=== PATIENT | female | born 1965 | race Caucasian/White ===

== ENCOUNTER → 2022-02-28 11:58 | Outpatient (CLI) | payer OTHER, SELFPAY | PROVIDERS: PCP Nurse Practitioner Family; Visit Provider Nurse Practitioner Family | DX: J02.0 Streptococcal pharyngitis (principal) | CPT/HCPCS: 87807; C9803; U0003; U0005 ==

== ENCOUNTER → 2022-06-11 11:47 | Outpatient (CLI) | payer OTHER, SELFPAY ==
--- NOTE | 2022-06-11 11:53 | XR_ITS ---
FINAL REPORT CLINICAL HISTORY: foot pain FINDINGS: AP, oblique and lateral views of the left foot were obtained. There is no prior exam for comparison. There is no acute fracture or dislocation. The joint spaces are preserved. Soft tissues are normal. IMPRESSION: No acute osseous abnormality of the left foot. Reviewed, Interpreted and Dictated by Monica Luz MD Transcribed by Piedad Shannon Authenticated and [facility]
== END ==
PROVIDERS: PCP Nurse Practitioner Family; Visit Provider Podiatrist
DX: M79.672 Pain in left foot (principal)
CPT/HCPCS: 73630

== ENCOUNTER 2023-04-14 16:13 | Emergency (ER) | payer OTHER, SELFPAY ==
--- NOTE | 2023-04-14 16:20 | XR_ITS ---
PROCEDURE INFORMATION: Exam: XR Left Ankle Exam date and time: 04/14/2023 4:36 PM Age: 57 years old Clinical indication: Injury or trauma; Other: Rolled ankle TECHNIQUE: Imaging protocol: Radiologic exam of the left ankle. Views: 3 or more views. COMPARISON: CR XR FOOT WT BEARING LT 3V 06/11/2022 12:18 PM FINDINGS: Bones/joints: There is an acute avulsion fracture involving the distal tip of the fibula with minor displacement of the small fracture fragment by approximately 1.3 mm. No additional acute fractures are seen. Joint spaces appear preserved. Calcaneal spurs are demonstrated at the origin of the plantar fascia and the insertion of the Achilles tendon. Soft tissues: There is minor associated perifractural edema. No subcutaneous emphysema or radiopaque foreign bodies. IMPRESSION: Acute avulsion fracture involving the distal tip of the fibula as described.
[2023-04-14 16:30] VITALS: BP 140/77; PULSE 85; RESP 18; TEMP 36.7; O2SAT 98; BMI 29.1
--- NOTE | 2023-04-14 16:33 | EXP.UTC ---
Discharge Plan Disposition Patient Disposition: Home, Self-Care Condition: Good Prescriptions Prescriptions: New ibuprofen [ibuprofen] 600 mg tablet 600 mg PO Q6HP PRN (Reason: Mild Pain) Qty: 30 0RF No Action atorvastatin 20 mg tablet 20 mg PO HS 30 Days Qty: 30 0RF Rx Instructions: Pt will need an appt/labs for additional refills Referrals Follow up/Referrals: Cary Schneider APRN [Primary Care Provider] - See instructions Susi Yeung DPM [Staff Physician] - See instructions Activity Restrictions/Add. Instructions Additional Instructions/Restrictions: Rest the extremity, apply ice for 15 minutes as tolerated three or four times per day, Elevate the extremity as tolerated while you are resting. Take ibuprofen for pain. I sent in a prescription to your pharmacy. Follow up with Dr. Yeung (podiatry). I put in a referral but you need to call her office and schedule an appointment. Her office phone number will be on this paperwork. Follow up with your regular doctor. GO TO THE ER FOR ANY WORSENING SYMPTOMS Clinical Impressions Clinical Impression: Closed avulsion fracture of distal end of left fibula Instructions Patient Instructions: DI for Avulsion Fracture Discharge ED Provider: Christiano Hobbs [facility] General Stated complaint: AO04/04 LT ankle injury Time Seen by Provider: 04/14/23 16:33 History of Present Illness Provider Complaint: She states that she slipped on a walnut and twisted her left foot. 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 She has had pain and swelling of her left ankle. She denies any other injury. She states that it hurts too bad to bear weight on her foot and ankle. Related Data Previous Rx's Medication Instructions Recorded atorvastatin 20 mg tablet 20 mg PO HS 30 days #30 tabs 03/22/22 ibuprofen 600 mg tablet 600 mg PO Q6HP PRN Mild Pain #30 04/14/23 tabs Allergies Allergy/AdvReac Type Severity Reaction Status Date / Time No Known Allergies Allergy Verified 04/14/23 16:39 [facility] Disclaimer: The information contained in this section may have been updated after the patient was seen, as this information can be updated by other users. Medical History Hyperlipidemia Surgical History History of delivery History of hip surgery Social History Smoking Status: Never smoker alcohol intake: never current occupational status: employed Travel in the last 8 weeks: None marital status: ROS Obtained: Yes All systems reviewed & no additional complaints except as documented Constitutional Constitutional: Denies chills and Denies fever(s) Eyes Eyes: Denies eye discharge ENT Ears, Nose, Mouth, and Throat: Denies dizziness, Denies otalgia and Denies sore throat Cardiovascular Cardiovascular: Denies chest pain Respiratory Respiratory: Denies shortness of breath, Denies chest congestion, Denies cough, Denies stridor and Denies wheezing Gastrointestinal Gastrointestingal: Denies nausea or vomiting Musculoskeletal Musculoskeletal: Reports as per HPI Integumentary/Breasts Skin/Breast: Denies rash Neurologic Neurologic: Denies dizziness and Denies paresthesias Allergic/Immunologic Allergic/Immunologic: Denies wheezing Physical Exam General General appearance: alert and in no apparent distress Head Head exam: atraumatic, normocephalic and normal inspection Eye Eye exam: Present normal appearance, PERRL and EOMI ENT ENT exam: Present normal exam, normal oropharynx, mucous membranes moist, TM's normal bilaterally and normal external ear exam Neck Neck exam: Present normal inspection, full ROM and trachea midline; Absent meningismus or lymphadenopathy Chest Chest inspection: Present normal inspection and symmetric chest wall rise; Absent tenderness Respiratory Respiratory exam: Present normal lung sounds bilaterally; Absent respiratory distress Cardiovascular Cardiovascular exam: Present regular rate and normal rhythm; Absent JVD Abdominal Exam Abdominal exam: Present soft and normal bowel sounds; Absent distention, tenderness or guarding Extremities Exam Extremities exam: Present normal capillary refill; Absent calf tenderness Expanded Lower Extremity Exam Left: Knee exam: Present normal inspection, full ROM and knee extension intact; Absent tenderness Lower leg exam: Present normal inspection, full ROM and Achilles tendon intact; Absent tenderness or Homans' sign Ankle exam: Present tenderness and swelling; Absent abrasion, laceration, ecchymosis, deformity, crepitus, dislocation, erythema, tenderness over talofibular lig or anterior draw sign Foot/toe exam: Present tenderness and swelling; Absent full ROM, abrasion, laceration, ecchymosis, deformity, crepitus, dislocation, erythema, amputation, puncture wound, foreign body, calcaneal tenderness, tenderness at base of 5th metatarsal, nail avulsion or subungual hematoma Neurovascular/Tendon exam: Present normal capillary refill and normal fine/light touch; Absent pulse deficit, motor deficit, sensory deficit, tendon deficit or extremity cold to touch Gait: observed and limited by pain Back Exam Back exam: Present normal inspection; Absent tenderness Neurological Exam Neurological exam: Present alert and oriented X3 Psychiatric Psychiatric exam: Present normal affect and normal mood Skin Skin exam: Present warm, dry, intact and normal color Lymphatic Lymphatic Findings: no adenopathy Medical Decision Making Medical Records Medical records reviewed: No I reviewed the patient's medical records. Lito Inquiry Pt receiving controlled substance: No Orders (Tests/Meds): ORDERS Category Date Time Status Ankle XR - Left minimum 3 Views [XR ankle LT min 3V] Exams 04/14/23 16:20 Ordered Stat Radiology Data #1: Image(s): Ankle Image Reviewed: Yes I reviewed the patient's radiology image and Yes I have reviewed radiologist's interpretation Preliminary Findings: Abnormal PROCEDURE INFORMATION: Exam: XR Left Ankle Exam date and time: 04/14/2023 4:36 PM Age: 57 years old Clinical indication: Injury or trauma; Other: Rolled ankle TECHNIQUE: Imaging protocol: Radiologic exam of the left ankle. Views: 3 or more views. COMPARISON: CR XR FOOT WT BEARING LT 3V 06/11/2022 12:18 PM FINDINGS: Bones/joints: There is an acute avulsion fracture involving the distal tip of the fibula with minor displacement of the small fracture fragment by approximately 1.3 mm. No additional acute fractures are seen. Joint spaces appear preserved. Calcaneal spurs are demonstrated at the origin of the plantar fascia and the insertion of the Achilles tendon. Soft tissues: There is minor associated perifractural edema. No subcutaneous emphysema or radiopaque foreign bodies. IMPRESSION: Acute avulsion fracture involving the distal tip of the fibula as described. Procedures Risk/Benefits of Procedure(s) Were Explained: Yes Orthopedic Splinting/Casting Injury #1: Side: left Lower Extremity Immobilizer: boot orthosis and applied by nurse/dr whyte Other Orthopedic Equipment: crutches Additional Comments: She brought her own crutches and boot orthosis with her. Post Cast/Splinting Neuro Status: intact and no change Post Cast/Splinting Vasc Status: intact and no change
[2023-04-14 17:49] VITALS: BP 156/90; PULSE 85; RESP 18; TEMP 36.8; O2SAT 95
== END 2023-04-14 17:49 | disposition home or self-care (01) ==
PROVIDERS: Emergency Provider Nurse Practitioner Family; PCP Nurse Practitioner Family
DX: S82.832A Other fracture of upper and lower end of left fibula, initial encounter for closed fracture (principal); W01.10XA Fall on same level from slipping, tripping and stumbling with subsequent striking against unspecified object, initial encounter
CPT/HCPCS: 73610; 99204; 99212; G0463

== ENCOUNTER 2023-05-07 13:24 | Outpatient (CLI) | payer OTHER, SELFPAY ==
--- NOTE | 2023-05-07 13:29 | XR_ITS ---
FINAL REPORT CLINICAL HISTORY: Foot Pain FINDINGS: 3 weightbearing views of the right foot were obtained. There is no acute fracture or dislocation. There is a moderate plantar spur. The joint spaces are intact. The soft tissues are unremarkable. IMPRESSION: No acute process. Reviewed, Interpreted and Dictated by Barry Sal MD Transcribed by Cory Nugent Authenticated and [facility]
--- NOTE | 2023-05-07 13:29 | XR_ITS ---
FINAL REPORT CLINICAL HISTORY: Ankle Pain avulsion fracture x few weeks FINDINGS: LEFT ANKLE: Three weightbearing views of the left ankle were obtained. There is no acute fracture or dislocation. The joint spaces and mortise are intact. There is no soft tissue abnormality. IMPRESSION: No acute process. Reviewed, Interpreted and Dictated by Barry Sal MD Transcribed by Cory Nugent Authenticated and [facility]
--- NOTE | 2023-05-07 13:29 | XR_ITS ---
FINAL REPORT CLINICAL HISTORY: Ankle Pain FINDINGS: RIGHT ANKLE: Three weightbearing views of the right ankle were obtained. There is no acute fracture or dislocation. The joint spaces and mortise are intact. There is no soft tissue abnormality. IMPRESSION: No acute process. Reviewed, Interpreted and Dictated by Barry Sal MD Transcribed by Cory Nugent Authenticated and [facility]
--- NOTE | 2023-05-07 13:29 | XR_ITS ---
FINAL REPORT CLINICAL HISTORY: Foot Pain FINDINGS: 3 weightbearing views of the left foot were obtained. There is no acute fracture or dislocation. There is a moderate plantar spur. The joint spaces are intact. The soft tissues are unremarkable. IMPRESSION: No acute process. Reviewed, Interpreted and Dictated by Barry Sal MD Transcribed by Cory Nugent Authenticated and [facility]
== END 2023-05-07 23:59 ==
PROVIDERS: PCP Nurse Practitioner Family; Visit Provider Podiatrist
DX: M25.572 Pain in left ankle and joints of left foot (principal); M25.571 Pain in right ankle and joints of right foot; M79.671 Pain in right foot; M79.672 Pain in left foot
CPT/HCPCS: 73610; 73630

== ENCOUNTER 2023-05-14 16:12 | Outpatient (CLI) | payer OTHER, SELFPAY ==
--- NOTE | 2023-05-14 16:16 | MM_ITS ---
PROCEDURE INFORMATION: Exam: MG Bilateral Screening 3D Mammography Exam date and time: 05/14/2023 4:11 PM Age: 57 years old Clinical indication: Screening. No family history of breast cancer. TECHNIQUE: Imaging protocol: Bilateral Screening tomosynthesis and 2D mammography including computer-aided detection (CAD) when performed. COMPARISON: No relevant prior studies available.If prior mammograms are provided, I am happy to add an addendum. FINDINGS: MAMMOGRAPHY: Breast composition: There are scattered areas of fibroglandular density. Mass: No suspicious mass. Architectural distortion: None. Calcifications: No suspicious calcifications. Asymmetric density: None. Skin thickening: None. Axillary adenopathy: None. IMPRESSION: No mammographic evidence of malignancy. Annual screening is recommended unless otherwise clinically indicated. ASSESSMENT: BI-RADS Category 1: Negative
== END 2023-05-14 23:59 ==
LOC: RAD 16:12
PROVIDERS: PCP Nurse Practitioner Family; Visit Provider Nurse Practitioner Family
DX: Z12.31 Encounter for screening mammogram for malignant neoplasm of breast (principal)
CPT/HCPCS: 77063; 77067

== ENCOUNTER 2024-01-11 19:25 | Emergency (ER) | payer OTHER, SELFPAY ==
--- NOTE | 2024-01-11 19:30 | XR_ITS ---
PROCEDURE INFORMATION: Exam: XR Left Wrist Exam date and time: 01/11/2024 7:28 PM Age: 58 years old Clinical indication: Pain; Wrist; Left; Additional info: Pain, patient stated she broke it 3 years ago and thinks she has reinjured it. Unknown recent injury TECHNIQUE: Imaging protocol: Radiologic exam of the left wrist. Views: 3 or more views. COMPARISON: No relevant prior studies available. FINDINGS: Bones/joints: Multiple views were obtained. The osseous structures appear intact with no evidence of acute fracture, dislocation, or malalignment. Joint spaces are preserved. No abnormal bone density or destructive lesions are noted. Soft tissues: Soft tissue swelling is observed, and further clinical correlation is advised. IMPRESSION: 1. At the time of imaging, the skeletal radiograph demonstrates no acute osseous abnormalities but does show soft tissue swelling. 2. If clinical concern persists, MRI would be suggested.
[2024-01-11 19:37] VITALS: BP 124/75; PULSE 77; RESP 16; TEMP 36.6; O2SAT 100; BMI 28.3
--- NOTE | 2024-01-11 19:54 | ED_ITS ---
Discharge Plan Disposition Patient Disposition: Home, Self-Care Condition: Good Prescriptions Prescriptions: No Action atorvastatin 40 mg tablet PO DAILY Patient Comments: TAKE 1 TABLET BY MOUTH ONCE DAILY ibuprofen [ibuprofen] 600 mg tablet 600 mg PO Q6HP PRN (Reason: Mild Pain) Qty: 30 0RF Referrals Follow up/Referrals: Cary Schneider APRN [Primary Care Provider] - See instructions Activity Restrictions/Add. Instructions Additional Instructions/Restrictions: Call in the morning for x-ray results. Continue to wear brace. Tylenol/Ibuprofen for pain. Follow up with primary care provider. If symptoms persist or worsen, return to clinic. Clinical Impressions Clinical Impression: Pain and swelling of left wrist Instructions Patient Instructions: DI for Wrist Pain, How To Perform RICE (Rest, Ice, Compress, Elevate), DI for Acute Pain -- Adult Print Language Print Language: Citizen Of [place] Discharge ED Provider: Subha Jenkins [facility] HPI General Stated complaint: Left wrist painful and swollen,has been broken Mode of Arrival: Ambulatory Source of Information: Patient Limitations: No Limitations Time Seen by Provider: 01/11/24 19:40 Description of Symptoms (Recalled from Triage Doc. by RN): Patient reports left wrist swelling and pain since yesterday. HEENT Symptoms (Recalled from RN notes): No Resp Symptoms (Recalled from RN notes): No Skin Symptoms (Recalled from RN notes): No MS Symptoms (Recalled from RN notes): Yes Functional Status (Recalled from RN notes): wnl History of Present Illness Provider Complaint: Pt reports that she had a fall 3-4 days ago and then the day before yesterday she was grabbing a filly and she pulled on her wrist. She now has left wrist pain and swelling. Pt reports that she broke the same wrist 4 years ago and have to have surgery. She has taken Ibuprofen for the pain and wears a wrist brace. Related Data Home Medications ?Medication ?Instructions ?Recorded ?Confirmed atorvastatin 40 mg tablet mg PO DAILY 05/07/23 05/07/23 Previous Rx's ?Medication ?Instructions ?Recorded ibuprofen 600 mg tablet 600 mg PO Q6HP PRN Mild Pain #30 04/14/23 tabs Allergies Allergy/AdvReac Type Severity Reaction Status Date / Time No Known Allergies Allergy Verified 05/07/23 14:21 Worker's Comp Is this a Worker's Comp case?: No [facility] Disclaimer: The information contained in this section may have been updated after the patient was seen, as this information can be updated by other users. Medical History Hyperlipidemia Surgical History History of delivery History of hip surgery Social History Smoking Status: Never smoker alcohol intake: never current occupational status: employed Travel in the last 8 weeks: None marital status: ROS Obtained: Yes All systems reviewed & no additional complaints except as documented Constitutional Constitutional: Reports system reviewed and no additional complaints, except as documented Eyes Eyes: Reports system reviewed and no additional complaints, except as documented ENT Ears, Nose, Mouth, and Throat: Reports system reviewed and no additional complaints, except as documented Cardiovascular Cardiovascular: Reports system reviewed and no additional complaints, except as documented Respiratory Respiratory: Reports system reviewed and no additional complaints, except as documented Gastrointestinal Gastrointestingal: Reports system reviewed and no additional complaints, except as documented Genitourinary Female Genitourinary: Reports system reviewed and no additional complaints, except as documented Musculoskeletal Musculoskeletal: Reports system reviewed and no additional complaints, except as documented Integumentary/Breasts Skin/Breast: Reports system reviewed and no additional complaints, except as documented Neurologic Neurologic: Reports system reviewed and no additional complaints, except as documented Endocrine Endocrine: Reports system reviewed and no additional complaints, except as documented Hematologic/Lymphatic Henatologic/Lymphatic: Reports system reviewed and no additional complaints, except as documented Allergic/Immunologic Allergic/Immunologic: Reports system reviewed and no additional complaints, except as documented Physical Exam General General appearance: alert and in no apparent distress Head Head exam: atraumatic and normocephalic Eye Eye exam: Present normal appearance ENT ENT exam: Present normal exam and normal oropharynx Neck Neck exam: Present normal inspection Chest Chest inspection: Present normal inspection and symmetric chest wall rise Respiratory Respiratory exam: Present normal lung sounds bilaterally Cardiovascular Cardiovascular exam: Present regular rate, normal rhythm and normal heart sounds Abdominal Exam Abdominal exam: Present soft and normal bowel sounds Expanded Upper Extremity Exam Left: Shoulder exam: Present normal inspection Arm exam: Present normal inspection Elbow exam: Present normal inspection Forearm/Wrist exam: Present tenderness and swelling Hand exam: Present normal inspection Neuromotor exam: Normal wrist extension, thumb opposition, thumb IP flexion, thumb adduction and fingers 2-5 abduction Vascular exam: Normal capillary refill, radial pulse, ulnar pulse and brachial pulse Back Exam Back exam: Present normal inspection Neurological Exam Neurological exam: Present alert and oriented X3 Psychiatric Psychiatric exam: Present normal affect and normal mood Skin Skin exam: Present warm, dry and intact Lymphatic Lymphatic Findings: no adenopathy Medical Decision Making Medical Records Screening: Per USPSTF and CDC recommendations, given the prevalence of disease in our region, it is our hospital?s policy to screen for HIV and viral Hepatitis for all patients aged 18 and over and those with ongoing risk factors. Lito Inquiry Pt receiving controlled substance: No Lito was queried for this patient: No Vital Signs: 01/11/24 19:37 Temperature 97.9 F Temperature Source Oral Pulse Rate [Radial] 77 Respiratory Rate 16 Blood Pressure [Right Arm] 124/75 Blood Pressure Mean [Right Arm] 91 Blood Pressure Source [Right Arm] Automatic Cuff Blood Pressure Position [Right Arm] Sitting 02 Sat by Pulse Oximetry 100 Oxygen Delivery Method Room Air Orders (Tests/Meds): ORDERS Category Date Time Status Wrist XR left minimum 3 views [XR wrist LT min 3V] Stat Exams 01/11/24 19:30 Taken
[2024-01-11 20:04] VITALS: BP 124/75; PULSE 77; RESP 16; TEMP 36.6; O2SAT 100
== END 2024-01-11 20:05 | disposition home or self-care (01) ==
PROVIDERS: Emergency Provider Nurse Practitioner Family; PCP Nurse Practitioner Family
DX: M25.532 Pain in left wrist (principal); R22.32 Localized swelling, mass and lump, left upper limb; W55.19XA Other contact with horse, initial encounter
CPT/HCPCS: 73110; 99212; 99213; G0463

== ENCOUNTER 2024-05-20 14:06 | Outpatient (CLI) | payer BC, SELFPAY ==
--- NOTE | 2024-05-20 14:09 | US_ITS ---
FINAL REPORT TECHNIQUE: Sonographic images of the thyroid were obtained. CLINICAL HISTORY: LUMP ON NECK COMPARISON: None FINDINGS: Limited sonographic images were obtained of the soft tissues in the neck at the area of palpable abnormality. No definite abnormality is noted in the region of the palpable abnormality. There are scattered benign-appearing lymph nodes measuring up to 1.7 cm. IMPRESSION: No evidence of definite abnormality at the area of interest.} Reviewed, Interpreted and Dictated by Barry Sal MD Transcribed by Anai Rogers Authenticated and . [facility]
== END 2024-05-20 23:59 | disposition home or self-care (01) ==
LOC: RAD 14:07
PROVIDERS: PCP Nurse Practitioner Family; Visit Provider Nurse Practitioner Family
DX: R22.1 Localized swelling, mass and lump, neck (principal)
CPT/HCPCS: 76536

== ENCOUNTER 2024-08-06 18:59 | Emergency (ER) | payer OTHER, SELFPAY ==
[2024-08-06 19:06] VITALS: BP 155/97; PULSE 78; RESP 18; TEMP 36.9; O2SAT 100; BMI 28.3
--- NOTE | 2024-08-06 19:06 | ECG_ITS ---
APPROVED REPORT Exam: Resting ECG HR:69 bpm ECG Measurements Heart Rate 69 AXES IL 161 P 49 QRSd 74 QRS 56 QT 397 T 56 QTc 416 Conclusion SINUS RHYTHM NORMAL ECG UNCONFIRMED REPORT Electronically signed by : Christiano Beard, 08/06/2024 22:57:13
--- NOTE | 2024-08-06 19:10 | PC.NURSE ---
Glucose was 98 checked by Nancy Sweeney
[2024-08-06 19:13] LABS: POC Glucose,Bedside 95 (70-110)
--- NOTE | 2024-08-06 19:15 | CT_ITS ---
PROCEDURE INFORMATION: Exam: CT Head Without Contrast Exam date and time: 08/06/2024 7:30 PM Age: 59 years old Clinical indication: Injury or trauma; Other: Incident with horse; Other: Pain; Additional info: Head injury TECHNIQUE: Imaging protocol: Computed tomography of the head without contrast. Total images: 542 Radiation optimization: All CT scans at this facility use at least one of these dose optimization techniques: automated exposure control; mA and/or kV adjustment per patient size (includes targeted exams where dose is matched to clinical indication); or iterative reconstruction. COMPARISON: US SOFT TISSUE HEAD AND NECK 05/20/2024 2:14 PM FINDINGS: Brain: Normal. No hemorrhage. Unremarkable white matter. No mass effect. The zamudio-white interface is maintained. Cerebral ventricles: No ventriculomegaly. Paranasal sinuses: Considerable mucosal thickening right maxillary sinus. Sinuses are otherwise clear. Mastoid air cells: Visualized mastoid air cells are well aerated. Auditory system: Small filling defects bilateral external auditory canals compatible with cerumen. Bones: Unremarkable. No acute fracture. Soft tissues: Unremarkable. IMPRESSION: 1. No acute intracranial process. 2. Considerable mucosal thickening right maxillary sinus.
--- NOTE | 2024-08-06 19:15 | XR_ITS ---
PROCEDURE INFORMATION: Exam: XR Left Foot Exam date and time: 08/06/2024 7:22 PM Age: 59 years old Clinical indication: Injury or trauma; Other: Horse stepped on L foot; Other: Pain; Additional info: Horse steppd on foot, pain 5th mt TECHNIQUE: Imaging protocol: Radiologic exam of the left foot. Views: 3 or more views. COMPARISON: CR XR FOOT WT BEARING LT 3V 05/07/2023 1:40 PM FINDINGS: Bones/joints: Normal. No acute fracture identified. Soft tissues: Normal. IMPRESSION: No acute findings.
--- NOTE | 2024-08-06 19:15 | CT_ITS ---
PROCEDURE INFORMATION: Exam: CT Cervical Spine Without Contrast Exam date and time: 08/06/2024 7:31 PM Age: 59 years old Clinical indication: Injury or trauma; Other: Incident with horse; Other: Pain; Additional info: Head injury TECHNIQUE: Imaging protocol: Computed tomography of the cervical spine without contrast. Total images: 283 Radiation optimization: All CT scans at this facility use at least one of these dose optimization techniques: automated exposure control; mA and/or kV adjustment per patient size (includes targeted exams where dose is matched to clinical indication); or iterative reconstruction. COMPARISON: CT HEAD/BRAIN WO CON 08/06/2024 7:30 PM FINDINGS: Bones: Mild osteopenia. Cervical vertebral body height and alignment is maintained. Base of the dens and the C1 and C2 articulations are preserved with mild degenerative arthropathy. The cervicooccipital junction is intact. The facet joints are appropriately aligned with mild degenerative spondylosis. Unremarkable posterior elements. Uniform pattern of mild degenerative disc disease throughout the cervical spine. Prominent partial bridging anterior endplate osteophyte formation at C5 through T1. No disc herniation or spinal canal stenosis. No concerning bone lesions. Scattered mild neural foraminal encroachments. Auditory system: Small filling defects bilateral external auditory canals. Lungs: Lung apices are clear. Soft tissues: No prevertebral soft tissue swelling. Unremarkable soft tissues of the neck. IMPRESSION: 1. No acute cervical fracture or traumatic subluxation. 2. Degenerative changes as described.
--- NOTE | 2024-08-06 19:17 | ED_ITS ---
Discharge Plan Disposition Patient Disposition: Home, Self-Care Prescriptions Prescriptions: New ondansetron 4 mg tablet,disintegrating 4 mg PO Q6H PRN (Reason: nausea and vomiting) 5 Days Qty: 20 0RF No Action atorvastatin 40 mg tablet PO DAILY Patient Comments: TAKE 1 TABLET BY MOUTH ONCE DAILY ibuprofen [ibuprofen] 600 mg tablet 600 mg PO Q6HP PRN (Reason: Mild Pain) Qty: 30 0RF Referrals Follow up/Referrals: Provider,Referral, MD [Primary Care Provider] - See instructions Activity Restrictions/Add. Instructions Additional Instructions/Restrictions: No evidence of an acute intracranial or cervical spine injury or broken bones or dislocated joints in your foot. If you continue to have difficulty with ambulation you may wear a walking boot and follow-up with orthopedic surgery if not improving in 1 to 2 weeks. Regarding your concussion return to activity as discussed return to the emergency room with any significant worsening symptoms or other concerns. Clinical Impressions Clinical Impression: Concussion, Crush injury of left foot, Amnesia (retrograde) Print Language Print Language: Korean Discharge ED Provider: Yao Beard General Adult HPI General Chief complaint: Extremity Injury, Lower Stated complaint: Trauma Time Seen by Provider: 08/06/24 19:03 History of Present Illness HPI narrative: Patient is a 59-year-old female presenting today with a head injury and a foot injury. She is amnestic to the events and history was obtained secondary to somebody who was with her. She currently denies any significant discomfort of the mild headache and left foot pain. 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 She has been amnestic with repetitive questioning since that time. She does recall this morning and has no other complaints at the moment. She is not on any anticoagulants she has had a concussion in the past. Denies any injuries to her chest abdomen pelvis or oth er long bones. Related Data Home Medications ?Medication ?Instructions ?Recorded ?Confirmed atorvastatin 40 mg tablet mg PO DAILY 05/07/23 05/07/23 Previous Rx's ?Medication ?Instructions ?Recorded ibuprofen 600 mg tablet 600 mg PO Q6HP PRN Mild Pain #30 04/14/23 tabs ondansetron 4 mg disintegrating 4 mg PO Q6H PRN nausea and 08/06/24 tablet vomiting 5 days #20 tabs Allergies Allergy/AdvReac Type Severity Reaction Status Date / Time No Known Allergies Allergy Verified 05/07/23 14:21 [facility] Disclaimer: The information contained in this section may have been updated after the patient was seen, as this information can be updated by other users. Medical History Hyperlipidemia Surgical History History of delivery History of hip surgery Social History Smoking Status: Never smoker alcohol intake: never current occupational status: employed Travel in the last 8 weeks: None marital status: Have you lived/traveled outside US in past 30 days?: No Contact w/someone who lives/traveled outside US past 30 days?: No Exposure to someone with infectious disease in past 14 days?: No Do you have a fever (greater than 100.4 F or 38 C)?: No Have you tested positive for COVID-19: No Exposed to someone with COVID-19 in past 14 days?: No Do you have a sore throat?: No Do you have a cough?: No Do you have any weakness?: No Do you have any diarrhea?: No Are you experiencing any unusual bleeding?: No Do you have any muscle aches/pain?: No Do you have any abdominal pain?: No Are you experiencing loss of taste or smell?: No Other Medical History Have you received the Pneumonia Vaccine: No ROS Obtained: Yes All systems reviewed & no additional complaints except as documented Physical Exam General General appearance: alert and in no apparent distress Head Head exam: atraumatic (No evidence of Archuleta sign raccoon eyes or depressible fracture) Neck Neck exam: Absent tenderness Respiratory Respiratory exam: Present normal lung sounds bilaterally Cardiovascular Cardiovascular exam: Present regular rate Extremities Exam Extremities exam: Present other (All long bones palpated without any significant tenderness patient does have pain and swelling and ecchymosis over the distal aspect of the fifth metatarsal on the left foot) Neurological Exam Neurological exam: Present alert, oriented X3, CN II-XII intact and normal gait; Absent motor sensory deficit Medical Decision Making Medical Records Screening: Per USPSTF and CDC recommendations, given the prevalence of disease in our region, it is our hospital?s policy to screen for HIV and viral Hepatitis for all patients aged 18 and over and those with ongoing risk factors. Lito Inquiry Pt receiving controlled substance: No Vital Signs: 08/06/24 19:06 08/06/24 19:48 08/06/24 20:00 Temperature 98.5 F Temperature Source Oral Pulse Rate 68 70 Pulse Rate [Right] 78 Respiratory Rate 18 14 14 Blood Pressure 119/84 125/77 Blood Pressure [Right Arm] 155/97 H Blood Pressure Mean [Right Arm] 116 Blood Pressure Source [Right Arm] Automatic Cuff Blood Pressure Position [Right Arm] Sitting 02 Sat by Pulse Oximetry 100 98 100 Oxygen Delivery Method Room Air Lab Data Lab Results 08/06/24 19:05: POC Glucose 95 Orders (Tests/Meds): ED MEDICATIONS Discontinued Medications Generic Name Dose Route Start Last Admin Trade Name Freq PRN Reason Stop Dose Admin Acetaminophen 1,000 mg 08/06/24 19:29 08/06/24 20:02 Acetaminophen 1,000mg/100ml Vial IV 08/06/24 19:30 1,000 mg ONCE ONE Administration Sodium Chloride 1,000 mls @ 999 mls/hr 08/06/24 19:30 08/06/24 19:41 Sod Chlor 0.9% 1000ml Bag IV 08/06/24 20:30 999 mls/hr .Q1H1M MANUELITO Administration Ondansetron HCl 4 mg 08/06/24 19:29 08/06/24 19:41 Ondansetron 4mg/2ml Vial IV 08/06/24 19:30 4 mg ONCE ONE Administration ORDERS Category Date Time Status CT cervical spine wo con Stat Cat Scan 08/06/24 19:[address] head/brain wo con Stat Cat Scan 08/06/24 19:15 Completed Foot XR left minimum 3 views [XR foot LT min 3V] Stat Exams 08/06/24 19:15 Completed POC Glucose,Bedside Routine Lab 08/06/24 19:05 Completed Medical Decision Narrative: Patient with above history and physical GCS of 15 normal neurologic exam at the moment but she is amnestic to a head injury as discussed above. We did CT scan of her head and cervical spine to rule out any significant injuries. I suspect she has a mild to moderate concussion and amnesia associated with that. She also has a foot injury will get plain films to evaluate for possible fracture or dislocation and will reassess. Reassessment 841 serial neurologic exams are normal. CT scan of the head and cervical spine performed and x-ray of the foot performed I personally interpreted which show no significant traumatic abnormalities. Radiology reads are consistent with this. Return to activity discussions regarding concussion were had. Also patient has multiple walking boots at home which she has difficulty walking and bearing weight she has been told that she can bear weight as tolerated with a walking boot and follow-up with orthopedic surgery. Armida sent to her pharmacy return precautions emphasized he was discharged in stable condition. Critical Care Critical Care Time Critical Care Time: No
--- NOTE | 2024-08-06 19:29 | PC.NURSE ---
PT has a strong pulse, brisk cap refill, sensation intact. Slight bruising and swelling noted to lateral foot.
[2024-08-06] MEDS: ONDANSETRON 4MG/2ML VIAL 4 MG IV (19:41)
[2024-08-06] MEDS: 0.9 % SODIUM CHLORIDE 1000ML 1,000 ML 999 ML IV (19:41)
[2024-08-06 19:48] VITALS: BP 119/84; PULSE 68; RESP 14; O2SAT 98
[2024-08-06 20:00] VITALS: BP 125/77; PULSE 70; RESP 14; O2SAT 100
[2024-08-06] MEDS: ACETAMINOPHEN 1,000MG/100ML VIAL 1000 MG IV (20:02)
[2024-08-06 20:30] VITALS: BP 116/68; PULSE 81; RESP 21; O2SAT 93
[2024-08-06 20:51] VITALS: BP 140/78; PULSE 65; RESP 18; TEMP 36.8; O2SAT 98
== END 2024-08-06 20:51 | disposition home or self-care (01) ==
PROVIDERS: Emergency Provider Student in an Organized Health Care Education/Training Program
DX: S06.0X9A Concussion with loss of consciousness of unspecified duration, initial encounter (principal); S97.82XA Crushing injury of left foot, initial encounter; R41.2 Retrograde amnesia; W55.19XA Other contact with horse, initial encounter
CPT/HCPCS: 70450; 72125; 73630; 82962; 93005; 96361; 96374; 96375; 99285; J0131; J2405; J7030

== ENCOUNTER 2025-02-11 14:17 | Outpatient (CLI) | payer OTHER, SELFPAY ==
--- NOTE | 2025-02-11 14:19 | MM_ITS ---
PROCEDURE INFORMATION: Exam: MG Bilateral Screening 3D Mammography Exam date and time: 02/11/2025 2:18 PM Age: 59 years old Clinical indication: Screening examination TECHNIQUE: Imaging protocol: Bilateral Screening tomosynthesis and 2D mammography including computer-aided detection (CAD) when performed. COMPARISON: 1. MG MM DIG SCREENING MAMM BI W/CAD 05/14/2023 4:11 PM 2. MG SCREEN MAMMO W CAD BILAT 12/04/2021 12:57 PM FINDINGS: MAMMOGRAPHY: Breast composition: There are scattered areas of fibroglandular density. Mass: There are 2 similar low-density subcentimeter masses in the right lateral breast, between the 9 and 11 o'clock axis at the middle depth measuring 0.5 and 0.4 cm, respectively. Architectural distortion: None. Calcifications: No suspicious calcifications. Asymmetric density: None. Skin thickening: None. Axillary adenopathy: None. IMPRESSION: Patient to be recalled for spot compression views of the right breast in the CC and MLO projections, a full 90 degree lateral view, and right breast ultrasound for further evaluation of 2 similar subcentimeter masses in the lateral aspect, middle depth. ASSESSMENT: BI-RADS Category 0: Incomplete- Need Additional Imaging Evaluation.
--- OUTSIDE RECORDS SUMMARY | 2025-02-11 14:27 | XMS_ITS | Clinical Summary ---
Author Organization Healthcare Address [address] [place] [address] Care Team Providers Care Obiee Architect Name Role Phone Cary Szymanski HYDRAULIC JACK OPERATOR Primary Care Provider [phone] Allergies Active Allergy Reactions Criticality Noted Date Comments Wound Dressing Adhesive Rash Low 04/04/2021 Medications Multiple Vitamin (MULTI-VITAMIN PO) Take by mouth 1 (one) time each day. 07/05/2017 Active calcium-vitamin D (calcium carbonate-vitami n D) 500-200 MG-UNIT tablet Take 1 tablet by mouth 1 (one) time each day. Active traMADol (Ultram) 50 MG tablet Take 1 tablet (50 mg total) by mouth every 4 (four) hours if needed for severe pain. 60 tablet 04/05/2021 Active Active Problems Problem Noted Date Diagnosed Date Wound dehiscence 04/04/2021 Overview (04/04/2021): Added automatically from request for surgery [id number] High cholesterol 04/04/2021 Obesity 04/04/2021 Arthritis of right hip 10/18/2020 Overview (10/18/2020): Added automatically from request for surgery [id number] Family History Medical History Relation Name Comments Other cancer Father Cardiac disorder Maternal Great-Grandfather Cardiac disorder Maternal Great-Grandmother Cardiac disorder Paternal Great-Grandfather Cardiac disorder Paternal Great-Grandmother Anesthesia problems Neg Hx Malig Hyperthermia Neg Hx Relation Name Status Comments Father Maternal Great-Grandfather Maternal Great-Grandmother Paternal Great-Grandfather Paternal Great-Grandmother Social History Tobacco Use Types Packs/Day Years Used Date Smoking Tobacco: Never Smokeless Tobacco: Never Alcohol Use Standard Drinks/Week Comments Yes 0 (1 standard drink = 0.6 oz pur e alcohol) occasionally Comments No Sex and Gender Information Value Date Recorded Sex Assigned at Not on file Legal Sex Female 6:44 PM EDT Gender Identity Not on file Sexual Orientation Straight 04/17/2021 1: 28 PM EST Last Filed Vital Signs Vital Sign Reading Time Taken Comments Blood Pressure 118/69 04/18/2021 1:18 PM EST Pulse 80 04/18/2021 1:18 PM EST Temperature 36.9 C (98.4 F) 04/05/2021 11:36 AM EST Respiratory Rate 13 04/04/2021 6:57 PM EST Oxygen Saturation 98% 04/05/2021 11: 36 AM EST Inhaled Oxygen Concentration - - Weight 84.3 kg (185 lb 13.6 oz) 04/18/2021 1:18 PM EST Height 165.1 cm (5' 5 ) 04/18/2021 1:18 PM EST Body Mass Index 30.93 04/18/2021 1:18 PM EST Plan of Treatment Health Maintenance Due Date Last Done Comments [facility]-Depression Screening 1963 [facility]-Infant/Child/Adol SDOH Screenings 1965 [facility]- SDOH Screenings 1981 [facility]-Adult SDOH Screenings 1981 [facility]-DTaP,Tdap,and Td Vaccine s (1 - Tdap) 1982 [facility]-Pap Smear 1984 [facility]-Cervical Cancer Screening 1993 [facility]-HPV/Cotest 1993 CT Colonography 2008 Colonoscopy 2008 FIT-DNA 2008 FIT 2008 FOBT 2008 Sigmoidoscopy 2008 [facility]-Colorectal Cancer Screening 2008 [facility]-Pneumococcal Vaccine: 50 + Years (1 of 1 - PCV) 2013 [id number] Vaccine (2 - season) 2024 11/20/2020 [facility]-Influenza Vaccine (#1) 2024 02/23/2020 [facility]-RSV Vaccine: 60+ Years o r (1 - 1-dose 75+ series) 2038 [facility]-Zoster Vaccines Completed 05/05/2020, 02/23/2020 HPV Vaccines Aged Out No longer eligi ble based on patient's age to complete this topic [facility]-HIB Vaccines Aged Out No longer e ligible based on patient's age to complete this topic [facility]-Hepatitis A Vaccines Aged Out No longer eligible based on patient's age to complete this topic [facility]-IPV Vaccines Aged Out No longer e ligible based on patient's age to complete this topic [facility]-Rotavirus Vaccines Aged Out No lo nger eligible based on patient's age to complete this topic Medical Devices Implanted Type Area Timber Framer Helper Device Identifier Shelf Expiration Date Model / Serial / Lot Liner Or3o Dual Mbility 38 50 - [id number] Implanted:Qty: 1 on 02/15/2021 by Jonathan Vyas MD at [facility] Hip Right: Hip [employer]-[id number] 05/14/2030 [id number] / / [id number] Chg Screw Ref Spher Head 35mm - [id number] Implanted:Qty: 1 on 02/15/2021 by Jonathan Vyas MD at [facility] Hip Right: Hip [employer]-[id number] 10/09/2030 [id number] / / [id number] Chg Screw Ref Spher Head 25mm - [id number] Implanted:Qty: 1 on 02/15/2021 by Jonathan Vyas MD at [facility] Hip Right: Hip [employer]-[id number] 12/20/2030 [id number] / / [id number] Chg Shell R3 3 Hole Acet 50mm - [id number] Implanted:Qty: 1 on 02/15/2021 by Jonathan Vyas MD at [facility] Hip Right: Hip [employer]-[id number] 11/02/2030 [id number] / / [id number] Liner Or3o Dual Mbility Xlpe 22 38 - [id number] Implanted:Qty: 1 on 02/15/2021 by Jonathan Vyas MD at [facility] Hip Right: Hip [employer]-[id number] 02/27/2030 [id number] / / [id number] Chg Head Oxinium Fem 03/28 22 - [id number] Implanted:Qty: 1 on 02/15/2021 by Jonathan Vyas MD at [facility] Hip Right: Hip [employer]-[id number] 10/27/2029 [id number] / / [id number] Polarstem Cementless Lat Tiha - [id number] Implanted:Qty: 1 on 02/15/2021 by Jonathan Vyas MD at [facility] Hip Right: Hip [employer]-[id number] 11/29/2025 [id number] / / [id number] Insurance [employer] Advance Directives * Full Code (Latest Code Status on File) Date Activated Date Inactivated Comments 04/04/2021 6:15 PM 04/05/2021 3:31 PM Question Answer Comments Patient has decision-making capacity? Yes * Full Code Date Activated Date Inactivated Comments 04/04/2021 4:32 PM 04/04/2021 6:15 PM Question Answer Comments Patient has decision-making capacity? Yes * Full Code Date Activated Date Inactivated Comments 02/15/2021 8:37 AM 02/15/2021 4:05 PM Question Answer Comments Patient has decision-making capacity? Yes Care Teams Obiee Architect Relationship Specialty Start Date End Date Cary Szymanski APRN [address] [facility] [address] [place] [address] [facility] - General 08/26/20
== END 2025-02-11 23:59 | disposition home or self-care (01) ==
LOC: RAD 14:18
PROVIDERS: PCP Nurse Practitioner Family; Visit Provider Nurse Practitioner Family
DX: Z12.31 Encounter for screening mammogram for malignant neoplasm of breast (principal); N63.11 Unspecified lump in the right breast, upper outer quadrant; R92.323 Mammographic fibroglandular density, bilateral breasts
CPT/HCPCS: 77063; 77067

== ENCOUNTER 2025-03-09 14:19 | Outpatient (CLI) | payer OTHER, SELFPAY ==
--- NOTE | 2025-03-09 14:21 | MM_ITS ---
PROCEDURE INFORMATION: Exam: US Right Breast, Complete MG Right Diagnostic Breast Tomosynthesis Exam date and time: 03/09/2025 2:24 PM Age: 59 years old Clinical indication: Callback for findings in the right breast. TECHNIQUE: Imaging protocol: Complete ultrasound of all four quadrants of the right breast and the retroareolar regions, including ultrasound of the axilla when performed. Right Diagnostic tomosynthesis and 2D mammography including computer-aided detection (CAD) when performed. Unilateral or bilateral exam. This study was interpreted in real time. The patient received the results. COMPARISON: MG MM DIG MAMM DX UNILAT RT CAD 03/09/2025 2:22 PM FINDINGS: MAMMOGRAPHY: Breast composition: There are scattered areas of fibroglandular density. Breast mammogram findings: Low-density possible lymph nodes in the right lateral breast, measuring 0.4 and 0.6 cm each, respectively. There is no suspicious distortion or calcification. ULTRASOUND: Breast ultrasound findings: Ultrasound of the right lateral breast demonstrates a hypoechoic mass versus cluster of cysts measuring 0.6 x 0.4 x 0.4 cm at 10 o'clock, 8 cm from the nipple. This correlates to 1 of the findings in the lateral right breast. In the right axilla, there are no suspicious lymph nodes. IMPRESSION: 1. Probably benign findings in the right lateral breast, correlating with a cluster of cysts on the ultrasound at 10 o'clock, 8 cm from the nipple. No suspicious mass, shadowing, or distortion is seen. 2. Six-month follow-up right breast diagnostic mammogram and right breast targeted ultrasound are recommended for close surveillance. ASSESSMENT: BI-RADS Category 3: Probably benign.
--- OUTSIDE RECORDS SUMMARY | 2025-03-09 14:33 | XMS_ITS | Clinical Summary ---
Author Organization Healthcare Address [address] [place] [address] Care Team Providers Care Head Cager Name Role Phone Cary Szymanski DATA OFFICER Primary Care Provider [phone] Allergies Active Allergy Reactions Criticality Noted Date [...] (04/04/2021): Added automatically from request for surgery [id number] High cholesterol 04/04/2021 Obesity 04/04/2021 Arthritis of right hip 10/18/2020 Overview (10/18/2020): Added automatically from request for surgery [id number] Family History Medical History Relation Name Comments [...] Years (1 of 1 - PCV) 2013 [id number] Vaccine (2 - season) 2024 11/20/2020 [facility]-Influenza [...] this topic Medical Devices Implanted Type Area Endocrinology Specialist Device Identifier Shelf Expiration Date Model / Serial / Lot Liner Or3o Dual Mbility 38 50 - [id number] Implanted:Qty: 1 on 02/15/2021 by Jonathan Vyas MD at [facility] Hip Right: Hip [employer]-[id number] 05/14/2030 [id number] / / [id number] Chg Screw Ref Spher Head 35mm - [id number] Implanted:Qty: 1 on 02/15/2021 by Jonathan Vyas MD at [facility] Hip Right: Hip [employer]-[id number] 10/09/2030 [id number] / / [id number] Chg Screw Ref Spher Head 25mm - [id number] Implanted:Qty: 1 on 02/15/2021 by Jonathan Vyas MD at [facility] Hip Right: Hip [employer]-[id number] 12/20/2030 [id number] / / [id number] Chg Shell R3 3 Hole Acet 50mm - [id number] Implanted:Qty: 1 on 02/15/2021 by Jonathan Vyas MD at [facility] Hip Right: Hip [employer]-[id number] 11/02/2030 [id number] / / [id number] Liner Or3o Dual Mbility Xlpe 22 38 - [id number] Implanted:Qty: 1 on 02/15/2021 by Jonathan Vyas MD at [facility] Hip Right: Hip [employer]-[id number] 02/27/2030 [id number] / / [id number] Chg Head Oxinium Fem 03/28 22 - [id number] Implanted:Qty: 1 on 02/15/2021 by Jonathan Vyas MD at [facility] Hip Right: Hip [employer]-[id number] 10/27/2029 [id number] / / [id number] Polarstem Cementless Lat Tiha - [id number] Implanted:Qty: 1 on 02/15/2021 by Jonathan Vyas MD at [facility] Hip Right: Hip [employer]-[id number] 11/29/2025 [id number] / / [id number] Insurance [employer] Advance Directives * Full Code [...] Patient has decision-making capacity? Yes Care Teams Head Cager Relationship Specialty Start Date End Date Cary Szymanski APRN [address] [facility] [address] [place] [address] [facility] - General 08/26/20
--- OUTSIDE RECORDS SUMMARY | 2025-03-09 14:33 | XMS_ITS | Clinical Summary ---
Author Organization [facility] yste Address [address] [place] [address] Care Team Providers Care Dog Boarder Name Role Phone Provider, No Known Primary Care Provider Unavail able Allergies No known active allergies Medications No known medications Social History Tobacco Use Types Packs/Day Years Used Date Smoking Tobacco: Never Smokeless Tobacco: Never Abuse Screen Answer Date Recorded Unsafe at Home or Work/School Not on file Feels Threatened by Someone? Not on file 02/2023 Does Anyone Keep You from Co ntacting Others or Doint Things Outside the Home? Not on file 01/23/2023 Physical Sign of Abuse Present Not on file 1 Housing Stability Answer Date Recorded Current Living Arrangements Not on file 01/13 Potentially Unsafe Housing Conditions Not on sosa e 01/23/2023 Family and Community Support Answer Demarcus e Recorded Help with Day-to-Day Activities Not on file 01/23/2023 Lonely or Isolated Not on file 01/23/2023 Employment Answer Date Recorded Do you want help finding or keeping work or a christel b? Not on file 01/23/2023 Disabilities Answer Date Recorded Concentrating, Remembering, or Making Decisions Difficulty Not on file 01/23/2023 Doing Errands Independently Difficulty Not on fi le 01/23/2023 Education Answer Date Recorded Help with school or training? Not on file Preferred Language Not on file 01/23/2023 Comments No Sex and Gender Information Value Date Recorded Sex Assigned at Not on file Legal Sex Female 12:43 PM EDT Gender Identity Not on file Sexual Orientation Not on file Last Filed Vital Signs Vital Sign Reading Time Taken Comments Blood Pressure 131/86 10/25/2020 11:15 AM EDT Pulse 70 10/25/2020 11:15 AM EDT Temperature 36.4 C (97.6 F) 10/25/2020 11:15 AM EDT Respiratory Rate 16 10/25/2020 11:15 AM EDT Oxygen Saturation 98% 10/25/2020 11:15 AM EDT Inhaled Oxygen Concentration - - Weight 79.4 kg (175 lb) 10/25/2020 11:15 AM EDT Height 165.1 cm (5' 5 ) 10/25/2020 11:15 AM EDT Body Mass Index 29.12 10/25/2020 11:15 AM EDT Plan of Treatment Health Maintenance Due Date Last Done Comments Annual Gynecologic Pelvic and Breast Exam 1963 TDAP/TD VACCINES (1 - Tdap) 1982 MAMMOGRAM 2003 COLOGUARD 2008 COLON CANCER SCREENING 5 YEAR SIGMOIDOSCOPY 2008 COLONOSCOPY [address] CANCER SCREENING [address] COLONOGRAPHY 2008 FECAL OCCULT BLOOD TEST 2008 FIT Testing (1 year) 2008 Pneumococcal Vaccine 50+ (1 of 1 - PCV) 2013 ZOSTER VACCINE (1 of 2) 2013 ANNUAL PHYSICAL 11/21/2016 HEPATITIS C SCREENING 11/21/2016 INFLUENZA VACCINE 11/13/2024 Insurance Care Teams Dog Boarder Relationship Specialty Start Date End Date Provider, [place] [address] PCP - General 11/21/16
== END 2025-03-09 23:59 | disposition home or self-care (01) ==
LOC: RAD 14:19
PROVIDERS: PCP Nurse Practitioner Family; Visit Provider Nurse Practitioner Family
DX: N60.01 Solitary cyst of right breast (principal); R92.321 Mammographic fibroglandular density, right breast; R59.0 Localized enlarged lymph nodes; R92.8 Other abnormal and inconclusive findings on diagnostic imaging of breast
CPT/HCPCS: 76641; 77061; 77065; G0279